=== PATIENT | female | born 1995 | race Caucasian/White ===

== ENCOUNTER 2018-05-01 14:46 | Inpatient (IN) ==
[2018-05-01] MEDS ORDERED: BUTORPHANOL 1 MG/ML VIAL IV PRN (15:04)
[2018-05-01] MEDS ORDERED: LACTATED RINGERS 1,000 ML IV ONE (15:04)
[2018-05-01] MEDS ORDERED: ONDANSETRON 4 MG/2 ML VIAL IV PRN (15:04)
[2018-05-01] MEDS ORDERED: MEPERIDINE 50 MG/1 ML VIAL IM PRN (15:04)
[2018-05-01] MEDS ORDERED: DINOPROSTONE VAG GEL 10 MG SYRINGE VAG ONE (15:09)
[2018-05-01] MEDS: LACTATED RINGERS 1,000 ML IV SCH ×2 (15:25→20:23)
[2018-05-01 16:39] LABS: Basophils % 0.2 % (0.0-0.8); Eosinophils % 0.4 % (0.00-10.9); Hematocrit 29.3 VOL% (35.7-47.0); Hemoglobin 9.1 GM/DL (12.0-16.0); Immature Granulocytes % 0.9 %; Lymphocytes # 1.7 10*3/uL (1.4-4.0); Lymphocytes % 15.8 % (21.3-54.2); Mean Corpuscular HGB Conc 31.1 GM/DL (32-36); Mean Corpuscular Hemoglobin 26 PG (27-34); Monocytes # 0.6 10*3/uL (0.11-0.8); Monocytes % 5.6 % (1.7-12.7); Neutrophils # 8.2 10*3/uL (1.4-7.4); Neutrophils % 77.1 % (38.7-73.9); Platelet Count 261 T/CUMM (130-400); Red Blood Count 3.53 MC/CUMM (3.8-5.5); Red Cell Distribution Width 14.6 % (9.3-17.3); White Blood Count 10.6 T/CUMM (4-12)
[2018-05-01 16:49] LABS: Albumin 2.3 G/DL (3.4-5.0); Bilirubin,Total 0.4 MG/DL (0.2-1.0); Calcium 8.4 MG/DL (8.5-10.1); Osmolality,Calculated 273.7 MOS/KG (273-304); Potassium 3.8 MMOL/L (3.5-5.1); Total Protein 6.1 G/DL (6.4-8.3); Uric Acid 4.6 MG/DL (2.6-6.0)
[2018-05-01] MEDS ORDERED: CITRIC ACID/SODIUM CITRATE 30 ML UDCUP PO ONE (19:27)
[2018-05-01] MEDS ORDERED: FAMOTIDINE 20 MG/2 ML VIAL IV ONE (19:27)
[2018-05-01] MEDS ORDERED: fentaNYL 2 MCG/ROPIV 0.2% EPID 150 ML EPIDURAL SCH (19:30)
[2018-05-01] MEDS ORDERED: ePHEDrine 50 MG/ML AMP ONE (20:08)
[2018-05-01 22:49] LABS: Apearance,Urine CLEAR (Clear); Bilirubin,Urine Negative (Negative); Blood, Urine Negative (Negative); Glucose,Urine (UA) Negative (Negative); Ketones,Urine Negative (Negative); Nitrite,Urine Negative (Negative); Protein,Urine Negative; RBC,Urine 1 /HPF (0-4); Urine Color Straw (Yellow); Urine Specific Gravity 1.003 (1.001-1.035); Urine Urobilinogen < 2.0 EU/DL (0.2-1.0); WBC,Urine <1 /HPF (0-6)
[2018-05-02] MEDS: LACTATED RINGERS 1,000 ML IV SCH ×2 (00:45→14:15)
[2018-05-02] MEDS ORDERED: TERBUTALINE 1 MG/1 ML VIAL SUBCUT ONE (01:43)
[2018-05-02] MEDS: OXYTOCIN/LR 20 UNIT/1,000 ML BAG IV SCH ×2 (02:01→05:25)
[2018-05-02] MEDS: fentaNYL 2 MCG/ROPIV 0.2% EPID 150 ML EPIDURAL SCH ×2 (05:50→14:16)
[2018-05-02] MEDS ORDERED: CITRIC ACID/SODIUM CITRATE 30 ML UDCUP PO ONE (16:34)
[2018-05-02] MEDS ORDERED: ceFAZolin 2,000 MG in PREMIX 1 EACH IV ONE (16:35)
[2018-05-02] MEDS ORDERED: OXYTOCIN 10 UNIT/ML VIAL IM ONE (16:36)
[2018-05-02] MEDS ORDERED: OXYTOCIN/LR 30 UNIT/1,000 ML BAG IV ONE (16:36)
[2018-05-02] MEDS ORDERED: RHO(D) IMMUNE GLOBULIN 300 MCG SYRINGE IM ONE (18:09)
[2018-05-02] MEDS ORDERED: ACETAMINOPHEN 325 MG TABLET PO PRN (18:09)
[2018-05-02] MEDS ORDERED: ONDANSETRON 4 MG/2 ML VIAL IV PRN (18:09)
[2018-05-02] MEDS ORDERED: OXYTOCIN/LR 20 UNIT/1,000 ML BAG IV ONE (18:09)
[2018-05-02] MEDS ORDERED: MORPHINE 10 MG/10 ML VIAL ONE (18:13)
[2018-05-02] MEDS ORDERED: SODIUM BICARBONATE 2.4 MEQ/5 ML VIAL ONE (18:13)
[2018-05-02] MEDS ORDERED: LIDOCAINE MPF 2% /EPI 20 ML VIAL ONE (18:13)
[2018-05-02] MEDS ORDERED: ROPIVACAINE 0.5% 30 ML VIAL ONE (18:13)
[2018-05-02] MEDS ORDERED: KETAMINE 500 MG/10 ML VIAL ONE (18:13)
[2018-05-02] MEDS ORDERED: PHENYLEPHRINE 1 MG/10 ML SYRINGE IV ONE (18:14)
[2018-05-02] MEDS ORDERED: MIDAZOLAM 2 MG/2 ML VIAL ONE (18:20)
[2018-05-02 18:21] LABS: Cord Venous Blood HCO3 21.8 MMOL/L; Cord Venous Blood PCO2 39.4 MMHG; Cord Venous Blood PO2 35.1 MMHG
[2018-05-02] MEDS ORDERED: LACTATED RINGERS 1,000 ML IV SCH (18:30)
[2018-05-02] MEDS ORDERED: ceFAZolin 1,000 MG in SYRINGE 1 EACH IV SCH (18:30)
[2018-05-02] MEDS: DOCUSATE SODIUM 100 MG CAPSULE PO SCH (21:33)
[2018-05-03] MEDS ORDERED: diphenhydrAMINE 50 MG/1 ML VIAL IV PRN (00:05)
[2018-05-03] MEDS: ceFAZolin 1,000 MG in SYRINGE 1 EACH IV SCH ×2 (02:02→15:13)
[2018-05-03 06:26] LABS: Basophils % 0.2 % (0.0-0.8); Eosinophils # 0.1 10*3/uL (0.0-0.87); Eosinophils % 0.5 % (0.00-10.9); Hematocrit 23.4 VOL% (35.7-47.0); Hemoglobin 7.5 GM/DL (12.0-16.0); Immature Granulocytes % 0.6 %; Immature Granulocytes Absolute 0.07 #; Lymphocytes # 1.9 10*3/uL (1.4-4.0); Lymphocytes % 15.7 % (21.3-54.2); Mean Corpuscular HGB Conc 32.1 GM/DL (32-36); Mean Corpuscular Hemoglobin 26 PG (27-34); Mean Corpuscular Volume 79.9 FL (87-102); Mean Platelet Volume 11.1 FL (9.6-12.0); Monocytes # 0.9 10*3/uL (0.11-0.8); Monocytes % 7.3 % (1.7-12.7); Neutrophils # 9.2 10*3/uL (1.4-7.4); Neutrophils % 75.7 % (38.7-73.9); Platelet Count 172 T/CUMM (130-400); Red Blood Count 2.93 MC/CUMM (3.8-5.5); Red Cell Distribution Width 14.7 % (9.3-17.3); White Blood Count 12.1 T/CUMM (4-12)
[2018-05-03] MEDS ORDERED: SODIUM CHLORIDE 0.9% 1,000 ML IV PRN (07:25)
[2018-05-03] MEDS: FERROUS SULFATE 325 MG TABLET PO SCH ×2 (09:12→20:47)
[2018-05-03] MEDS: SIMETHICONE CHEW 80 MG TABLET PO PRN ×2 (09:12→20:47)
[2018-05-03] MEDS: DOCUSATE SODIUM 100 MG CAPSULE PO SCH ×2 (09:12→20:47)
[2018-05-03] MEDS: MAGNESIUM HYDROXIDE SUSP 30 ML UDCUP PO PRN ×2 (09:13→20:47)
[2018-05-03] MEDS: MULTIVITAMIN (PRENATAL) TABLET PO SCH (09:13)
[2018-05-03] MEDS ORDERED: ceFAZolin 1,000 MG in SYRINGE 1 EACH IV SCH (14:15)
[2018-05-03] MEDS: IBUPROFEN 800 MG TABLET PO PRN (16:58)
[2018-05-03 19:43] LABS: Hemoglobin 9.7 GM/DL (12.0-16.0)
[2018-05-04] MEDS: IBUPROFEN 800 MG TABLET PO PRN ×2 (03:44→12:02)
[2018-05-04 07:53] VITALS: BP 103/70
[2018-05-04] MEDS: MULTIVITAMIN (PRENATAL) TABLET PO SCH (08:42)
[2018-05-04] MEDS: FERROUS SULFATE 325 MG TABLET PO SCH (08:42)
[2018-05-04] MEDS: DOCUSATE SODIUM 100 MG CAPSULE PO SCH (08:42)
[2018-05-04] MEDS: MAGNESIUM HYDROXIDE SUSP 30 ML UDCUP PO PRN (08:42)
== END 2018-05-04 12:40 | disposition home or self-care (01) | DRG 766 ==
LOC: N.LDOUT 14:46 → N.LD 14:48 → N.OB 05-02 20:25
PROVIDERS: ADMIT Obstetrics & Gynecology; ATTEND Obstetrics & Gynecology
PROC: LDCSECT (ICD-10-PCS; 2018-05-02 17:15)